=== PATIENT | female | born 1985 | race Caucasian/White ===

== ENCOUNTER 2021-02-21 15:07 | Emergency (ER) | payer MEDICAID, OTHER ==
[~2021-02-21] VITALS: Ht 180.3 cm; Wt 72.7 kg
[2021-02-21 15:44] VITALS: BP 154/105
== END 2021-02-21 16:38 | disposition home or self-care (01) ==
LOC: ER 15:08
DX: U07.1 COVID-19 (principal); R09.81 Nasal congestion; Z20.822 Contact with and (suspected) exposure to COVID-19; R05 Cough; R68.83 Chills (without fever)
CPT/HCPCS: 36415; 99283; U0003; U0005